=== PATIENT | female | born 1960 | race Caucasian/White ===

== ENCOUNTER 2022-02-02 07:19 | Day surgery (SDC) | payer OTHER ==
[2022-01-28 12:09] VITALS: BMI 31.1
[2022-02-02] MEDS ORDERED: LIDOCAINE HCL/PF 2% SDV 5ML VIAL ONE (07:36)
[2022-02-02] MEDS ORDERED: PROPOFOL 20 ML ONE ×4 (07:36)
[2022-02-02 09:40] VITALS: TEMP 98.2
[2022-02-02 09:44] VITALS: BP 100/56; PULSE 65
== END 2022-02-02 09:55 | disposition home or self-care (01) ==
LOC: FASU-ENDO 07:19
PROVIDERS: ATTEND Internal Medicine Gastroenterology
PROC: 0DB98ZX Excision of Duodenum, Via Natural or Artificial Opening Endoscopic, Diagnostic (ICD-10-PCS; 2022-02-02)
PROC: 0DB68ZX Excision of Stomach, Via Natural or Artificial Opening Endoscopic, Diagnostic (ICD-10-PCS; 2022-02-02)
PROC: 0DJD8ZZ Inspection of Lower Intestinal Tract, Via Natural or Artificial Opening Endoscopic (ICD-10-PCS; principal; 2022-02-02 08:25)
DX: Z12.11 Encounter for screening for malignant neoplasm of colon (principal); K29.50 Unspecified chronic gastritis without bleeding; R10.13 Epigastric pain
CPT/HCPCS: 43239; G0121; 88305-TC; 88342-TC